=== PATIENT | male | born 1980 | race Caucasian/White ===

== ENCOUNTER 2020-01-29 15:05 | Emergency (ER) | payer OTHER ==
--- NOTE | 2020-01-29 15:28 | ED Physician Documentation ---
History of Present Illness - Stated complaint Stated Complaint: MALE - Chief complaint Chief Complaint: General - History obtained from History obtained from: Patient - Additonal information Additional information: 39-year-old man with past medical history of gout on colchicine and ibuprofen presents with bilateral testicular rash that he noticed today while jogging. Patient still endorsing twisting sensation in left hemiscrotum that radiates upward along inguinal crest. The sensation is not worsened by coughing or lifting heavy objects. Denies fevers, nausea, abdominal or urinary symptoms or abnormal discharge/lesions. Declining HIV testing because he just had it done. Review of Systems Ten Systems: 10 systems reviewed and negative Constitutional: denies: Fever, Chills GI: denies: Abdominal Pain : denies: Dysuria Skin: reports: Rash PD PAST MEDICAL HISTORY - Past Medical History Other Past Medical History: stand by dr angel, noted multiple flat red blood blistering on the scrotum. no edema no drainage noted. ambulate with steady gait. 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 normal ext male genitalia. submillimeter raised blood filled papules to BL scrotum.) - Rectal Rectal: Deferred - Back Back: No CVA TTP - Derm Derm: Other (+rash BL scrotum) - Extremities Extremities: No deformity - Neuro Neuro: Alert and oriented X 3 - Psych Psych: Normal mood, Normal affect Results - Vitals Vitals: Vital Signs - 24 hr 01/29/20 01/29/20 15:09 17:51 Temperature 36.9 C 36.4 C L Heart Rate 68 72 Respiratory 15 17 Rate Blood Pressure 132/78 H 140/87 H O2 Saturation 100 97 Oxygen O2 Source Room air - Labs Labs: Laboratory Tests 01/29/20 16:15 Chlam trachomat DNA PCR NEGATIVE N.gonorrhoeae DNA (PCR) NEGATIVE T. vaginalis (PCR) TNP PD MEDICAL DECISION MAKING - ED course ED course: 89-year-old man presents with bilateral scrotal rash. Today. Rash appears to be benign, but STI testing done upon patient request. Also with testicular pain that will be evaluated by ultrasound. Patient endorsed to Dr. Francis for further management, evaluation of ultrasound and disposition. Departure - Departure Disposition: 01 Home, Self Care Clinical Impression: Scrotal rash Condition: Good Instructions: ED Dermatitis Non Specific Rash Comments: Cause of symptoms is not quite clear, ultrasound was normal except for some hydroceles which are generally not symptomatic. Return if worsening or if new symptoms develop for reevaluation. Discharge Date/Time: 01/29/20 17:58
--- NOTE | 2020-01-29 17:37 | ED Physician Documentation ---
ED Addendum - Addendum Addendum: 01/29/20 17:[address] Cortez at shift change. 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 I personally saw and examined him. The he has a nonspecific rash with red raised small bumps measuring less than a millimeter on both sides of the scrotum. There is no tenderness or mass. Ultrasound reported as normal except for small hydroceles. Watchful waiting was advised.
--- NOTE | 2020-01-29 17:40 | Ultrasound Report ---
PROCEDURE: Testicle w/Doppler INDICATIONS: BL testicular discomfort X 1 d TECHNIQUE: Real-time scanning was performed of the scrotum and testicles, with image documentation. Color and p ulse Doppler interrogation was performed of both testicles. COMPARISON: None. FINDINGS: Right: Testicle is normal in size at 4.6 x 2.2 x 3.0 cm, and homogenous in echotexture. Epididymis is normal in overall size and morphology. No varicocele. Hydrocele is present. Overlying scrotal ski n is normal in thickness. Left: Testicle is normal in size at 4.6 x 2.0 x 3.0 cm, and homogeneous in echotexture. Epididymis is demonstrate multiple small cysts within the head. No varicocele. Hydrocele is present. Overlying s crotal skin is normal in thickness. Doppler: Color and pulse Doppler demonstrate normal and symmetric arterial flow in both testicles. IMPRESSION: No acute process. Reviewed by: Jer Lau MD on 01/29/2020 4:39 PM [facility] Approved by: Jer Lau MD on 01/29/2020 4:39 PM [facility] Station ID: [id number]
[2020-01-29 17:52] VITALS: BP 140/87
== END 2020-01-29 17:58 | disposition home or self-care (01) ==
LOC: ED 15:05
DX: R21 Rash and other nonspecific skin eruption (principal); N50.89 Other specified disorders of the male genital organs; N43.3 Hydrocele, unspecified
CPT/HCPCS: 76870; 87491; 87591; 87661; 93975; 99284